=== PATIENT | female | born 1985 ===

== ENCOUNTER 2016-09-09 21:42 | Emergency (ER) | payer OTHER ==
[2016-09-09 22:25] LABS: PH,URINE 6.5 (5.0-8.0); URINE BILIRUBIN NEGATIVE (NEGATIVE); URINE BLOOD NEGATIVE (NEGATIVE); URINE GLUCOSE (UA) NEGATIVE (NEGATIVE); URINE LEUKOCYTE ESTERASE NEGATIVE (NEGATIVE); URINE NITRITE NEGATIVE (NEGATIVE); URINE PROTEIN NEGATIVE (NEGATIVE); URINE UROBILINOGEN NORMAL (0-1 mg/dl)
[2016-09-09 22:27] LABS: HCG,QUALITATIVE URINE NEGATIVE
[2016-09-09 22:35] LABS: URINE COLOR YELLOW
[2016-09-09 22:36] LABS: URINE APPEARANCE CLEAR
[2016-09-09] MEDS ORDERED: MAALOX/LIDO2%VISC/SIMETHICONE 40 ML BOT ONE (23:55)
== END 2016-09-10 00:30 | disposition home or self-care (01) ==
LOC: ED 21:42
DX: K29.70 Gastritis, unspecified, without bleeding (principal)
CPT/HCPCS: 81025; 81003; 99283 ×2; A9270